=== PATIENT | female | born 1950 | race Hispanic/Latino ===

== ENCOUNTER 2016-07-28 09:10 | Day surgery (SDC) | payer MEDICARE, BC ==
[2016-07-28] MEDS ORDERED: Lactated Ringer's 500 ML IV ONE (09:44)
[2016-07-28] MEDS ORDERED: Propofol 10 mg/ml Inj (20 ML) ONE (10:43)
[2016-07-28 11:21] VITALS: TEMP 97.2
[2016-07-28 11:37] VITALS: BP 143/76; PULSE 75; RESP 15; O2SAT 100
== END 2016-07-28 11:50 | disposition home or self-care (01) ==
LOC: H.ENDO 09:10
PROVIDERS: ATTEND Internal Medicine Gastroenterology
DX: D12.5 Benign neoplasm of sigmoid colon (principal); D12.3 Benign neoplasm of transverse colon; D12.2 Benign neoplasm of ascending colon; K62.1 Rectal polyp; K57.30 Diverticulosis of large intestine without perforation or abscess without bleeding; K64.4 Residual hemorrhoidal skin tags; K64.8 Other hemorrhoids
CPT/HCPCS: 45380; 45384; 88305; J2001; J2704; J7120

== ENCOUNTER 2017-02-09 08:34 | Day surgery (SDC) | payer MEDICARE, BC ==
[2017-02-09] MEDS ORDERED: Lactated Ringer's 500 ML IV ONE (09:08)
[2017-02-09] MEDS ORDERED: Propofol 10 mg/ml Inj (20 ML) ONE (10:54)
[2017-02-09 11:44] VITALS: O2SAT 100
[2017-02-09 11:56] VITALS: BP 127/74; PULSE 69; RESP 14; TEMP 97.2
== END 2017-02-09 12:04 | disposition home or self-care (01) ==
LOC: H.ENDO 08:34
PROVIDERS: ATTEND Internal Medicine Gastroenterology
DX: Z12.11 Encounter for screening for malignant neoplasm of colon (principal); E78.5 Hyperlipidemia, unspecified; I10 Essential (primary) hypertension; D64.9 Anemia, unspecified; K31.7 Polyp of stomach and duodenum; E07.9 Disorder of thyroid, unspecified; K64.4 Residual hemorrhoidal skin tags; K29.70 Gastritis, unspecified, without bleeding; Z86.010 Personal history of colon polyps
CPT/HCPCS: 45378; J2704; J7120

== ENCOUNTER 2017-04-09 18:23 | Inpatient (IN) | payer MEDICARE, BC ==
[2017-04-09] MEDS ORDERED: Sodium Chloride 0.9% 1,000 ML IV STA (19:40)
[2017-04-09 20:07] LABS: BASO % 0.6 % (0.0-2.0); EOS # 0.2 K/uL (0.0-0.7); EOS % 2.3 % (0.0-4.0); HEMATOCRIT 35.2 % (34.0-47.0); LYMPH # 2.1 K/uL (1.0-4.3); LYMPH % 28.1 % (20.0-40.0); MEAN CELL VOLUME 78.1 fl (81.0-99.0); MEAN CORPUSCULAR HEMOGLOBIN 25.9 pg (27.0-31.0); MEAN CORPUSCULAR HGB CONC 33.2 g/dL (33.0-37.0); MEAN PLATELET VOLUME 6.7 fl (7.2-11.7); MONO # 0.6 K/uL (0.0-0.8); MONO % 7.7 % (0.0-10.0); NEUT # 4.7 K/uL (1.8-7.0); NEUT % 61.3 % (50.0-75.0); NRBC % 0.1 % (0.0-0.0); RED CELL DISTRIBUTION WIDTH 14.7 % (11.5-14.5); WHITE BLOOD COUNT 7.6 K/uL (4.8-10.8)
--- NOTE | 2017-04-09 20:10 | ED PDOC ---
HPI: Headache Time Seen by Provider: 04/09/17 19:11 Chief Complaint (Nursing): Headache Chief Complaint (Provider): Headache, neck pain adn left arm pain History Per: Patient History/Exam Limitations: no limitations Onset/Duration Of Symptoms: Days (x 1 week) Current Symptoms Are (Timing): Still Present Additional Complaint(s): 66 year old female with a past medical history of hypertension who presents to the ED with headache, neck pain and left arm pain, onset 1 week ago. Patient reports headache and neck pain are both sharper and stronger in the left side of the head for last 2 days. She has taken Advil with minimal relief. Patient reports she had headaches everyday, but this is stronger and sharper than usual. Pain worsens when she moves her head and radiates to her left arm. Reports intermittent chest pain. Denies fever and photophobia. PMD: Dr. Zain Lopez MD Past Medical History Reviewed: Historical Data, Nursing Documentation, Vital Signs Vital Signs: Last Vital Signs Temp 98 F 04/09/17 18:35 Pulse 81 04/09/17 18:35 Resp 18 04/09/17 18:35 BP 192/83 H 04/09/17 18:35 Pulse Ox 98 04/09/17 18:35 - Medical History PMH: HTN, Hypercholesterolemia, Hypothyroidism - Family History Family History: States: Unknown Family Hx - Home Medications Home Medications: Ambulatory Orders Medication Instructions Recorded Atenolol [Atenolol] 100 mg PO DAILY 04/09/17 Atorvastatin [Lipitor] 20 mg PO DAILY 04/09/17 Glipizide [Glipizide Xl] 5 mg PO DAILY 04/09/17 Levothyroxine [Synthroid] 0.137 mcg PO DAILY 04/09/17 MetFORMIN [glucoPHAGE] 1,000 mg PO BID 04/09/17 Omeprazole [Omeprazole] 20 mg PO DAILY 04/09/17 Ramipril [Altace] 10 mg PO DAILY 04/09/17 amLODIPine [Norvasc] 10 mg PO DAILY 04/09/17 hydroCHLOROthiazide [Hydrodiuril] 25 mg PO DAILY 04/09/17 - Allergies Allergies/Adverse Reactions: Allergies Allergy/AdvReac Type Severity Reaction Status Date / Time No Known Allergies Allergy Verified 02/09/17 09:05 Review of Systems ROS Statement: Except As Marked, All Systems Reviewed And Found Negative Constitutional: Negative for: Fever Cardiovascular: Positive for: Chest Pain Musculoskeletal: Positive for: Neck Pain (left side) Neurological: Positive for: Headache. Negative for: Other (photophobia) Physical Exam - Reviewed Nursing Documentation Reviewed: Yes Vital Signs Reviewed: Yes - Physical Exam Appears: Positive for: Well, Non-toxic, No Acute Distress Head Exam: Positive for: ATRAUMATIC, NORMAL INSPECTION, NORMOCEPHALIC Skin: Positive for: Normal Color, Warm, Dry Eye Exam: Positive for: EOMI, Normal appearance, PERRL ENT: Positive for: Pharyngeal Erythema Neck: Positive for: Pain On Movement Of Neck (tenderness of left paraspinal region) Cardiovascular/Chest: Positive for: Regular Rate, Rhythm. Negative for: Murmur Respiratory: Positive for: Normal Breath Sounds. Negative for: Respiratory Distress Gastrointestinal/Abdominal: Positive for: Normal Exam, Soft. Negative for: Tenderness Back: Positive for: Normal Inspection. Negative for: L CVA Tenderness, R CVA Tenderness, Vertebral Tenderness Extremity: Positive for: Tenderness (left trapezius muscle) Neurologic/Psych: Positive for: Alert, Oriented. Negative for: Motor/Sensory Deficits - Laboratory Results Result Diagrams: 04/09/17 19:59 04/09/17 19:59 - ECG O2 Sat by Pulse Oximetry: 98 (RA) Pulse Ox Interpretation: Normal Medical Decision Making Medical Decision Making: Time: 19:33 Impression: headache, arm pain and chest pain Differential diagnoses: primary headache, secondary headache, radiculopathy, ACS, HTN urgency --CT Head without contrast --EKG --BMP --Troponin I --CBC with differentials --erythrocyte sedimentation rate --PTT --Prothrombin time --Morphine 2 mg IVP --Sodium chloride 1,000 mls/ hr Iv --Norvasc 10 mg PO EKG --normal sinus rhythm, rate is 78. No ST changes. There is a left branch bundle block. CT head without contrast FINDINGS: Brain: Minimal atrophy. No intracranial hemorrhage. No mass. No definite edema. Ventricles: No hydrocephalus. Bones/joints: No acute fracture. Soft tissues: Unremarkable. Vasculature: Atherosclerotic disease of intracranial arteries. Sinuses: No acute sinusitis. Mastoid air cells: No mastoid effusion. Orbits: Unremarkable as visualized. IMPRESSION: 1. No acute intracranial abnormality. 2. Incidental/non-acute findings are described above. 23:[address] reviewed and findings noted as follows: FINDINGS: Limitations: Motion artifact - mild. Pulmonary arteries: No pulmonary embolism. Aorta: Moderate atherosclerotic disease. No dissection. No aneurysm. Lungs: Mosaic pattern of lung parenchyma. Mild atelectasis/scarring. 0.3 cm RIGHT upper lobe nodule, stable. Pleural space: No significant effusion. No pneumothorax. Heart: Mild cardiomegaly. No significant pericardial effusion. Mild coronary artery calcifications. Thyroid: Stable appearance of thyroid gland. Bones/joints: Degenerative changes of spine. Mild deformity superior endplate T11 vertebral body, chronic. No acute fracture. Soft tissues: Unremarkable. Lymph nodes: No pathologically enlarged lymph nodes. IMPRESSION: 1. No aortic dissection. 2. Mosaic pattern of lung parenchyma, nonspecific. DDX: Air-trapping, interstitial edema, interstitial pneumonia, interstitial lung disease. Clinical correlation is needed. 3. Incidental/non-acute findings are described above. Scribe Attestation: Documented by Irasema Oneill and Yanira Mcgregor acting as scribes for Divine Burton MD Provider Scribe Attestation: All medical record entries made by the Scribe were at my direction and personally dictated by me. I have reviewed the chart and agree that the record accurately reflects my personal performance of the history, physical exam, medical decision making, and the department course for this patient. I have also personally directed, reviewed, and agree with the discharge instructions and disposition Disposition - Disposition Forms: [employer] ([place])
[2017-04-09 20:20] LABS: BLOOD UREA NITROGEN 22 mg/dl (7-17); CALCIUM 9.4 mg/dL (8.4-10.2); CARBON DIOXIDE 28 mmol/L (22-30); CHLORIDE 103 mmol/L (98-107); GFR AFRICAN-AMERICAN > 60; GLUCOSE,RANDOM 130 mg/dL (65-105); POTASSIUM 3.6 MMOL/L (3.6-5.0); SODIUM 141 mmol/l (132-148)
[2017-04-09 20:57] LABS: PARTIAL THROMBOPLASTIN TIME 32.9 Seconds (25.6-37.1)
--- NOTE | 2017-04-09 22:08 | CT ---
EXAM: CT Head Without Intravenous Contrast CLINICAL HISTORY: 66 years old, female; Pain; Headache; Other: Left sided TECHNIQUE: Axial computed tomography images of the head/brain without intravenous contrast. All CT scans at this facility use one or more dose reduction techniques, viz.: automated exposure control; ma/kV adjustment per patient size (including targeted exams where dose is matched to indication; i.e. head); or iterative reconstruction technique. Coronal and sagittal reformatted images were created and reviewed. COMPARISON: CT - HEAD^HEAD ROUTINE (ADULT) 2011-06-05 15:37 FINDINGS: Brain: Minimal atrophy. No intracranial hemorrhage. No mass. No definite edema. Ventricles: No hydrocephalus. Bones/joints: No acute fracture. Soft tissues: Unremarkable. Vasculature: Atherosclerotic disease of intracranial arteries. Sinuses: No acute sinusitis. Mastoid air cells: No mastoid effusion. Orbits: Unremarkable as visualized. IMPRESSION: 1. No acute intracranial abnormality. 2. Incidental/non-acute findings are described above.
[2017-04-09] MEDS ORDERED: Sodium Chloride 0.9% 50 ML IV ONE (22:59)
[2017-04-09] MEDS ORDERED: Iodixanol 320 MG/ML 100 ML BOTTLE IV ONE (22:59)
--- NOTE | 2017-04-09 23:57 | CT ---
EXAM: CT Angiography Chest Without and With Intravenous Contrast CLINICAL HISTORY: 66 years old, female; Pain; Abdominal pain; Acute; Chest pain; Additional info: Chest pain neck pain headache arm pain hypertensiv TECHNIQUE: Axial computed tomographic angiography images of the chest without and with intravenous contrast using pulmonary embolism protocol. All CT scans at this facility use one or more dose reduction techniques, viz.: automated exposure control; ma/kV adjustment per patient size (including targeted exams where dose is matched to indication; i.e. head); or iterative reconstruction technique. MIP reconstructed images were created and reviewed. Coronal and sagittal reformatted images were created and reviewed. CONTRAST: 95 mL of [id number] administered intravenously. COMPARISON: CT - VASCULAR^PE LARGE (ADULT) 2011-06-05 18:17 FINDINGS: Limitations: Motion artifact - mild. Pulmonary arteries: No pulmonary embolism. Aorta: Moderate atherosclerotic disease. No dissection. No aneurysm. Lungs: Mosaic pattern of lung parenchyma. Mild atelectasis/scarring. 0.3 cm RIGHT upper lobe nodule, stable. Pleural space: No significant effusion. No pneumothorax. Heart: Mild cardiomegaly. No significant pericardial effusion. Mild coronary artery calcifications. Thyroid: Stable appearance of thyroid gland. Bones/joints: Degenerative changes of spine. Mild deformity superior endplate T11 vertebral body, chronic. No acute fracture. Soft tissues: Unremarkable. Lymph nodes: No pathologically enlarged lymph nodes. IMPRESSION: 1. No aortic dissection. 2. Mosaic pattern of lung parenchyma, nonspecific. DDX: Air-trapping, interstitial edema, interstitial pneumonia, interstitial lung disease. Clinical correlation is needed. 3. Incidental/non-acute findings are described above. EXAM: CT Angiography Abdomen and Pelvis With Intravenous Contrast CLINICAL HISTORY: 66 years old, female; Pain; Abdominal pain; Acute; Chest pain; Additional info: Chest pain neck pain headache arm pain hypertensiv TECHNIQUE: Axial computed tomographic angiography images of the abdomen and pelvis with intravenous contrast. All CT scans at this facility use one or more dose reduction techniques, viz.: automated exposure control; ma/kV adjustment per patient size (including targeted exams where dose is matched to indication; i.e. head); or iterative reconstruction technique. MIP reconstructed images were created and reviewed. Coronal and sagittal reformatted images were created and reviewed. CONTRAST: 95 mL of [id number] administered intravenously. COMPARISON: No relevant prior studies available. FINDINGS: VASCULATURE: Aorta: Moderate atherosclerotic disease. No dissection. No aneurysm. Celiac trunk and mesenteric arteries: Mild atherosclerotic disease. No occlusion or significant stenosis. Renal arteries: Mild LEFT sclerotic disease. Mild ostial stenosis. No occlusion. Iliac arteries: Moderate atherosclerotic disease. No occlusion or significant stenosis. ABDOMEN: Liver: Fatty infiltration. Few calcifications. Gallbladder and bile ducts: Gallstones. No ductal dilation. Pancreas: Unremarkable. No ductal dilation. No mass. Spleen: Mild splenomegaly. Adrenals: Unremarkable. No mass. Kidneys and ureters: Few peripelvic cysts. Probable RIGHT renal cyst. Few too small to characterize lesions within kidneys. No hydronephrosis. Stomach and bowel: Unremarkable. No obstruction. No mucosal thickening. Appendix: Normal caliber. No inflammation. PELVIS: Bladder: Unremarkable. No mass. Reproductive: Unremarkable as visualized. ABDOMEN and PELVIS: Intraperitoneal space: Unremarkable. No significant fluid collection. No free air. Bones/joints: Degenerative changes of spine. Mild deformity superior endplate L2 vertebral body, chronic. No acute fracture. No dislocation. Soft tissues: Unremarkable. Lymph nodes: No pathologically enlarged lymph nodes. IMPRESSION: 1. No aortic dissection. 2. Incidental/non-acute findings are described above.
--- NOTE | 2017-04-10 05:01 | CP.PCM.HP ---
<Samuel Sears - Last Filed: 04/10/17 06:04> History of Present Illness - History of Present Illness History of Present Illness: 66 year old female with PMH of HTN, NIDDM2, Obesity, HLD, hypothyroidism, herniated disks presented to ED with history of left sided headache and neck pain that has been worsening for past two days. She has never had headache like this before. She has associated left sided neck pain, exacerbated by movement, with radiation to left arm. Pain is severe, sharp in nature, without associated numbness or tingling. She reports difficulty turning her head to the left, no difficulty with turning right. No associated dizziness, visual changes, recent illness, fevers, nausea or vomiting, no chest or back pain. No weakness of upper or lower extremities. Headache has improved since arrival to ED, is now tolerable but still present. Patients BP was initially elevated upon presentation to ED, states she did take her BP medications today. Her daughters were present, do not know of any history of abnormal EKG or MA. Patient not aware of hx of abnormal ECG. Her pulley maintainer is Dr. Jolanta Rueda, last visit was in May 2016. Unknown if patient had echo recently. PMD: Dr. Garcia Spd Manager: Dr. Jolanta Rueda PMH: HTN, NIDDM2, Obesity, hypothyroidism, HLD Medications: as per chart Allergies: NKDA Social: denies current tobacco, etoh use Family HX: Father :HTN, stroke As per patient code status: DNR/DNI. Daughter present for discussion about code status. Patient does not want intubation or CPR, her mother despite this treatment, she would like to avoid it. Present on Admission - Present on Admission Any Indicators Present on Admission: No Past Patient History - Infectious Disease Hx of Infectious Diseases: None - Past Medical History & Family History Past Medical History?: Yes - Past Social History Smoking Status: Former Smoker - CARDIAC Hx Hypercholesterolemia: Yes Hx Hypertension: Yes - ENDOCRINE/METABOLIC Hx Hypothyroidism: Yes - MUSCULOSKELETAL/RHEUMATOLOGICAL Hx Falls: No - PSYCHIATRIC Hx Substance Use: No - SURGICAL HISTORY Hx Surgeries: No - ANESTHESIA Hx Anesthesia: No Meds Allergies/Adverse Reactions: Allergies Allergy/AdvReac Type Severity Reaction Status Date / Time No Known Allergies Allergy Verified 02/09/17 09:05 Physical Exam - Constitutional Additional comments: no distress, appears uncomfortable, obese female - Head Exam Head Exam: ATRAUMATIC, NORMAL INSPECTION, NORMOCEPHALIC - Eye Exam Eye Exam: EOMI, Normal appearance, PERRL - ENT Exam ENT Exam: Mucous Membranes Moist, Normal Exam - Neck Exam Neck exam: Negative for: Thyromegaly Additional comments: limited range of motion. able to turn head to right without limitations, limited ROM upon turning head left due to pain. posterior neck mildly tender to palpation. - Expanded Neck Exam Expanded Expanded Neck Exam: absent: Thyroid Mass, Tracheal Deviation - Respiratory Exam Respiratory Exam: Clear to Auscultation Bilateral, NORMAL BREATHING PATTERN. absent: Decreased Breath Sounds, Rales, Rhonchi, Wheezes, Respiratory Distress - Cardiovascular Exam Cardiovascular Exam: REGULAR RHYTHM, +S1, +S2. absent: Diastolic murmur, Systolic Murmur Additional comments: distant heart sounds - GI/Abdominal Exam GI & Abdominal Exam: Normal Bowel Sounds, Soft. absent: Distended, Guarding, Tenderness - Extremities Exam Extremities exam: Positive for: normal inspection. Negative for: pedal edema - Neurological Exam Neurological exam: Alert, CN II-XII Intact, Oriented x3 - Expanded Neurological Exam Expanded Speech: Fluid Speech Cranial nerves: EOM's Intact: Normal Neuro motor strength exam: Left Upper Extremity: 5, Right Upper Extremity: 5, Left Lower Extremity: 5, Right Lower Extremity: 5 Coma Scale Eye Opening: SPONTANEOUS Coma Scale Motor Response: OBEYS COMMANDS Coma Scale Verbal: Oriented Coma Scale Total: 15 - Psychiatric Exam Psychiatric exam: Normal Affect, Normal Mood - Skin Skin Exam: Dry, Intact, Normal Color, Warm Results - Vital Signs Recent Vital Signs: Last Vital Signs Temp 98.0 F 04/10/17 01:55 Pulse 74 04/10/17 03:49 Resp 16 04/10/17 03:49 BP 141/68 04/10/17 01:55 Pulse Ox 95 04/10/17 01:55 - Labs Result Diagrams: 04/09/17 19:59 04/09/17 19:59 Labs: Laboratory Results - last 24 hr 04/09/17 04/09/17 04/09/17 19:59 19:59 19:59 WBC 7.6 RBC 4.50 Hgb 11.7 L Hct 35.2 MCV 78.1 L D MCH 25.9 L MCHC 33.2 RDW 14.7 H Plt Count 213 MPV 6.7 L Neut % (Auto) 61.3 Lymph % (Auto) 28.1 [place] % (Auto) 7.7 Eos % (Auto) 2.3 Baso % (Auto) 0.6 Neut # 4.7 Lymph # 2.1 [place] # 0.6 Eos # 0.2 Baso # 0.0 ESR 43 H PT 10.9 INR 1.0 APTT 32.9 Sodium 141 Potassium 3.6 Chloride 103 Carbon Dioxide 28 Anion Gap 14 BUN 22 H Creatinine 0.7 Est GFR ( Amer) > 60 Est GFR (Non-Af Amer) > 60 Random Glucose 130 H Calcium 9.4 Troponin I 0.0150 - EKG Data EKG Interpreted by: Myself - Imaging and Cardiology CT scan - abdomen Status: Image reviewed by me, Report reviewed by me Additional comment: CLINICAL HISTORY: 66 years old, female; Pain; Abdominal pain; Acute; Chest pain; Additional info: Chest pain neck pain headache arm pain hypertensiv TECHNIQUE: Axial computed tomographic angiography images of the chest without and with intravenous contrast using pulmonary embolism protocol. All CT scans at this facility use one or more dose reduction techniques, viz.: automated exposure control; ma/kV adjustment per patient size (including targeted exams where dose is matched to indication; i.e. head); or iterative reconstruction technique. MIP reconstructed images were created and reviewed. Coronal and sagittal reformatted images were created and reviewed. CONTRAST: 95 mL of [id number] administered intravenously. COMPARISON: CT - VASCULAR PE LARGE (ADULT) 2011-06-05 18:17 FINDINGS: Limitations: Motion artifact - mild. Pulmonary arteries: No pulmonary embolism. Aorta: Moderate atherosclerotic disease. No dissection. No aneurysm. Lungs: Mosaic pattern of lung parenchyma. Mild atelectasis/scarring. 0.3 cm RIGHT upper lobe nodule, stable. Pleural space: No significant effusion. No pneumothorax. Heart: Mild cardiomegaly. No significant pericardial effusion. Mild coronary artery calcifications. Thyroid: Stable appearance of thyroid gland. Bones/joints: Degenerative changes of spine. Mild deformity superior endplate T11 vertebral body, chronic. No acute fracture. Soft tissues: Unremarkable. Lymph nodes: No pathologically enlarged lymph nodes. IMPRESSION: 1. No aortic dissection. 2. Mosaic pattern of lung parenchyma, nonspecific. DDX: Air-trapping, interstitial edema, interstitial pneumonia, interstitial lung disease. Clinical correlation is needed. 3. Incidental/non-acute findings are described above. EXAM: CT Angiography Abdomen and Pelvis With Intravenous Contrast CLINICAL HISTORY: 66 years old, female; Pain; Abdominal pain; Acute; Chest pain; Additional info: Chest pain neck pain headache arm pain hypertensiv TECHNIQUE: Axial computed tomographic angiography images of the abdomen and pelvis with intravenous contrast. All CT scans at this facility use one or more dose reduction techniques, viz.: automated exposure control; ma/kV adjustment per patient size (including targeted exams where dose is matched to indication; i.e. head); or iterative reconstruction technique. MIP reconstructed images were created and reviewed. Coronal and sagittal reformatted images were created and reviewed. CONTRAST: 95 mL of [id number] administered intravenously. COMPARISON: No relevant prior studies available. FINDINGS: VASCULATURE: Aorta: Moderate atherosclerotic disease. No dissection. No aneurysm. Celiac trunk and mesenteric arteries: Mild atherosclerotic disease. No occlusion or significant stenosis. Renal arteries: Mild LEFT sclerotic disease. Mild ostial stenosis. No occlusion. Iliac arteries: Moderate atherosclerotic disease. No occlusion or significant stenosis. ABDOMEN: Liver: Fatty infiltration. Few calcifications. Gallbladder and bile ducts: Gallstones. No ductal dilation. Pancreas: Unremarkable. No ductal dilation. No mass. Spleen: Mild splenomegaly. Adrenals: Unremarkable. No mass. Kidneys and ureters: Few peripelvic cysts. Probable RIGHT renal cyst. Few too small to characterize lesions within kidneys. No hydronephrosis. Stomach and bowel: Unremarkable. No obstruction. No mucosal thickening. Appendix: Normal caliber. No inflammation. PELVIS: Bladder: Unremarkable. No mass. Reproductive: Unremarkable as visualized. ABDOMEN and PELVIS: Intraperitoneal space: Unremarkable. No significant fluid collection. No free air. Bones/joints: Degenerative changes of spine. Mild deformity superior endplate L2 vertebral body, chronic. No acute fracture. No dislocation. Soft tissues: Unremarkable. Lymph nodes: No pathologically enlarged lymph nodes. IMPRESSION: 1. No aortic dissection. 2. Incidental/non-acute findings are described above. Dictated By: Bird Umaña MD Dictated Date/Time: 04/09/17 5069 Signed By: Bird Umaña MD Date Signed: [id number] Transcribed By: BATSHEVA Transcribe Date/Time : 04/09/172355 [id number] CT scan - head Status: Image reviewed by me, Report reviewed by me Additional comment: CT Scan HEAD W/O CONTRAST Exam Date: 04/09/17 This imaging exam was performed at [facility] EXAM: CT Head Without Intravenous Contrast CLINICAL HISTORY: 66 years old, female; Pain; Headache; Other: Left sided TECHNIQUE: Axial computed tomography images of the head/brain without intravenous contrast. All CT scans at this facility use one or more dose reduction techniques, viz.: automated exposure control; ma/kV adjustment per patient size (including targeted exams where dose is matched to indication; i.e. head); or iterative reconstruction technique. Coronal and sagittal reformatted images were created and reviewed. COMPARISON: CT - HEAD HEAD ROUTINE (ADULT) 2011-06-05 15:37 FINDINGS: Brain: Minimal atrophy. No intracranial hemorrhage. No mass. No definite edema. Ventricles: No hydrocephalus. Bones/joints: No acute fracture. Soft tissues: Unremarkable. Vasculature: Atherosclerotic disease of intracranial arteries. Sinuses: No acute sinusitis. Mastoid air cells: No mastoid effusion. Orbits: Unremarkable as visualized. IMPRESSION: 1. No acute intracranial abnormality. 2. Incidental/non-acute findings are described above. Dictated By: Bird Umaña MD Dictated Date/Time: 04/09/172206 Signed By: Bird Umaña MD Date Signed: [id number] Transcribed By: BATSHEVA Transcribe Date/Time : 04/09/172206 Assessment & Plan (1) Headache Assessment and Plan: 66 year old female with PMH of HTN, HLD, NIDDM2, Obesity, Hypothyroidism admitted for new onset severe headache with associated neck and arm pain. No focal deficits. Does not appear to be infectious etiology, however not ruled out. CT head was negative. CTAngio was negative for dissection. ESR:43 If symptoms persists in AM, can consider a MRI of brain and neurology consult. Lipid panel, tsh, hga1c ordered given patients increased risk of stroke due to comorbidities. Cardiology consult -EKG abnormal, no comparison. No echo on file. rule out acs. Tylenol for h/a, if mod to severe can give morphine. Status: Acute (2) Neck pain on left side Assessment and Plan: etiolgy unknown, possibly related to cervical neck disk herniation as reported by patient, lidoderm patch for now Status: Acute (3) HTN (hypertension) Assessment and Plan: uncontrolled on admission, BP now normalized, home medications resumed. Status: Chronic (4) HLD (hyperlipidemia) Assessment and Plan: lipid panel in AM Status: Chronic (5) Hypothyroidism Assessment and Plan: tsh in AM, on synthroid Status: Chronic (6) Obesity Status: Chronic (7) Non-insulin dependent type 2 diabetes mellitus Assessment and Plan: home medications resumed hga1c ordered Status: Chronic <Jose Thomas - Last Filed: 04/12/17 06:55> Results - Vital Signs Recent Vital Signs: Last Vital Signs Temp 97.9 F 04/11/17 08:00 Pulse 69 04/11/17 09:08 Resp 18 04/11/17 08:00 BP 139/75 04/11/17 09:08 Pulse Ox 94 L 04/11/17 08:00 - Labs Result Diagrams: 04/09/17 19:59 04/09/17 19:59 Attending/Attestation - Attestation I have fully participated in the care of the patient.: Yes I have reviewed all pertinent clinical information: Yes
[2017-04-10 07:57] LABS: TROPONIN I 0.012 ng/mL (0.00-0.120)
[2017-04-10 08:14] LABS: THYROID STIMULATING HORMONE 4.48 mIU/ML (0.46-4.68)
--- NOTE | 2017-04-10 08:48 | CP.PCM.CON ---
History of Present Illness - History of Present Illness History of Present Illness: This 66-year-old female is known to me from 1992 when I saw her first for hypertension. She has been chronically overweight and the left glucose intolerance approximately 20 years back and eventually had abnormal renal function requiring regular renal assessment. She was also found to be hypothyroid and has been taking thyroid replacement. She has never been a smoker and has never suffered a myocardial infarction and a nuclear stress test with IV Persantine approximately 10 years back was negative for any evidence of myocardial ischemia. The patient has never manifested overt congestive cardiac failure. The patient now came into the hospital having experienced left-sided neck pain which is further aggravated by turning her face left side and also involves radiation of this discomfort to the left side of her head and to left shoulder and arm. She denies any injury to the neck. She denies any trauma or fall. The pain is not accompanied by any nausea or vomiting. She denies any palpitations or dyspnea. There is a history of right sided neck pain which radiated down her right arm which was ascribed to a cervical radiculopathy one year back. Physical examination shows an overweight anxious female lying flat in bed with a pulse rate of 64 bpm and regular and a blood pressure of 144/84 mmHg. Her jugular venous pressure was not elevated there was minimal pitting edema over both lower extremities. Pedal pulses were well felt. There were no carotid bruits. The apex was not palpable. The first and second heart sounds are normal. Ejection systolic murmur in the aortic area was present the second heart sound was well preserved. Abdomen was soft liver and spleen are not palpable. Her electro-cardiogram shows sinus rhythm with a left bundle branch block which has been detected for the first time. Comparison to her electrocardiograms off 2014 and before show that she always had sinus rhythm with a normal EKG pattern. The lab data was noted. There was mild azotemia. Impression: Newly detected left bundle branch block in a patient with long history of hypertension, diabetes and diabetic nephropathy with chronic exogenous obesity and hypothyroidism. The patient has no overt evidence of congestive cardiac failure. The patient will undergo an echocardiogram to assess left ventricular systolic function In the meantime, the patient is proceeding with her workup to evaluate her left- sided neck pain. Past Patient History - Infectious Disease Hx of Infectious Diseases: None - Past Medical History & Family History Past Medical History?: Yes - Past Social History Smoking Status: Former Smoker - CARDIAC Hx Hypercholesterolemia: Yes Hx Hypertension: Yes - ENDOCRINE/METABOLIC Hx Hypothyroidism: Yes - MUSCULOSKELETAL/RHEUMATOLOGICAL Hx Falls: No - PSYCHIATRIC Hx Substance Use: No - SURGICAL HISTORY Hx Surgeries: No - ANESTHESIA Hx Anesthesia: No Meds Allergies/Adverse Reactions: Allergies Allergy/AdvReac Type Severity Reaction Status Date / Time No Known Allergies Allergy Verified 02/09/17 09:05 - Medications Medications: Current Medications Acetaminophen (Tylenol 325mg Tab) 650 mg PO Q6 PRN PRN Reason: Headache Amlodipine Besylate (Norvasc) 10 mg PO DAILY [facility] Atenolol (Atenolol) 100 mg PO DAILY [facility] Atorvastatin Calcium (Lipitor) 20 mg PO DAILY [facility] Glipizide (Glucotrol Xl) 5 mg PO DAILY [facility] Hydrochlorothiazide (Hydrodiuril) 25 mg PO DAILY [facility] Levothyroxine Sodium (Levothroid) 137 mcg PO DAILY@0630 [facility] Metformin HCl (Glucophage) 1,000 mg PO BID [facility] Morphine Sulfate (Morphine) 2 mg IVP Q4 PRN PRN Reason: Pain, moderate (4-7) Pantoprazole Sodium (Protonix Ec Tab) 40 mg PO DAILY [facility] Ramipril (Altace) 10 mg PO DAILY [facility] Results - Vital Signs Recent Vital Signs: Last Vital Signs Temp 98.4 F 04/10/17 08:00 Pulse 67 04/10/17 08:00 Resp 18 04/10/17 08:00 BP 133/68 04/10/17 08:00 Pulse Ox 97 04/10/17 08:00 - Labs Result Diagrams: 04/09/17 19:59 04/09/17 19:59 Labs: Laboratory Results - last 24 hr 04/09/17 04/09/17 04/09/17 19:59 19:59 19:59 WBC 7.6 RBC 4.50 Hgb 11.7 L Hct 35.2 MCV 78.1 L D MCH 25.9 L MCHC 33.2 RDW 14.7 H Plt Count 213 MPV 6.7 L Neut % (Auto) 61.3 Lymph % (Auto) 28.1 [place] % (Auto) 7.7 Eos % (Auto) 2.3 Baso % (Auto) 0.6 Neut # 4.7 Lymph # 2.1 [place] # 0.6 Eos # 0.2 Baso # 0.0 ESR 43 H PT 10.9 INR 1.0 APTT 32.9 Sodium 141 Potassium 3.6 Chloride 103 Carbon Dioxide 28 Anion Gap 14 BUN 22 H Creatinine 0.7 Est GFR ( Amer) > 60 Est GFR (Non-Af Amer) > 60 Random Glucose 130 H Calcium 9.4 Troponin I 0.0150 NT-Pro-B Natriuret Pep Triglycerides Cholesterol LDL Cholesterol Direct HDL Cholesterol TSH 3rd Generation 04/10/17 04:20 WBC RBC Hgb Hct MCV MCH MCHC RDW Plt Count MPV Neut % (Auto) Lymph % (Auto) [place] % (Auto) Eos % (Auto) Baso % (Auto) Neut # Lymph # [place] # Eos # Baso # ESR PT INR APTT Sodium Potassium Chloride Carbon Dioxide Anion Gap BUN Creatinine Est GFR ( Amer) Est GFR (Non-Af Amer) Random Glucose Calcium Troponin I 0.0120 NT-Pro-B Natriuret Pep 183 Triglycerides 111 Cholesterol 148 LDL Cholesterol Direct 97 HDL Cholesterol 36 TSH 3rd Generation 4.48
[2017-04-10] MEDS ORDERED: GlipiZIDE 5 mg SR Tab PO SCH (09:00)
[2017-04-10] MEDS: Pantoprazole 40 mg EC Tab PO SCH (09:37)
[2017-04-10] MEDS: ATENOLOL 100 MG TAB PO SCH (09:37)
--- NOTE | 2017-04-10 10:53 | CARD ---
APPROVED REPORT EKG Measurement Heart [id number] 206P50 [id number] <Conclusion> Normal sinus rhythm Left bundle branch block Abnormal ECG
[2017-04-10] MEDS: GlipiZIDE 5 mg SR Tab PO SCH (13:27)
[2017-04-10 18:50] VITALS: RESP 18
--- NOTE | 2017-04-10 19:36 | CARD ---
APPROVED REPORT EXAM: Two-dimensional and M-mode echocardiogram with Doppler and color Doppler. Other Information Quality : AverageRhythm : LBBB INDICATION Abnormal EKG/Arrhythmia 2D DIMENSIONS IVSd0.99 (0.7-1.1cm)LVDd4.34 (3.9-5.9cm) LVOT Diameter2.12 (1.8-2.4cm)PWd1.56 (0.7-1.1cm) IVSs1.48 (0.8-1.2cm)LVDs4.10 (2.5-4.0cm) FS (%) 5.7 %PWs1.38 (0.8-1.2cm) M-Mode DIMENSIONS Left Atrium (MM)4.26 (2.5-4.0cm)IVSd1.18 (0.7-1.1cm) Aortic Root2.82 (2.2-3.7cm)LVDd5.00 (4.0-5.6cm) Aortic Cusp Exc.1.82 (1.5-2.0cm)PWd1.03 (0.7-1.1cm) IVSs1.18 cmFS (%) 24 % LVDs3.82 (2.0-3.8cm)PWs1.50 cm Mitral Valve MV E Gwbahuam53.5cm/sMV DECEL [id number] A Djkhrtxs006.5cm/s MV GSB60wgN/A ratio0.9MVA (PHT)3.66cm2 TDI E/Lateral E'0.0E/Medial E'0.0 Pulmonary Valve PV Peak Cwswmjzq208.7cm/s Tricuspid Valve TR Peak Qsflrsbm063bp/sRAP [id number] Peak Gr.25mmHg HLSI45gbCq LEFT VENTRICLE The left ventricle is normal size. There is normal left ventricular wall thickness. Left ventricle systolic function is mildly impaired. The Ejection Fraction is - 50%. The septal wall demonstrates mild paradoxical motion. The other segments of the left ventricle have good contraction. Transmitral Doppler flow pattern is Grade I-abnormal relaxation pattern. No left ventricle thrombus noted on this study. There is no ventricular septal defect visualized. There is no left ventricular aneurysm. There is no mass noted in the left ventricle. RIGHT VENTRICLE The right ventricle is normal size. There is normal right ventricular wall thickness. The right ventricular systolic function is normal. ATRIA The left atrium is mildly dilated. There is no thrombus suspected in the left atrium. The right atrium size is normal. The interatrial septum is intact with no evidence for an atrial septal defect. AORTIC VALVE The aortic valve is normal in structure. No aortic regurgitation is present. There is no aortic valvular stenosis. MITRAL VALVE The mitral valve is normal in structure. There is no evidence of mitral valve prolapse. There is no mitral valve stenosis. Mitral regurgitation is moderate. TRICUSPID VALVE The tricuspid valve is normal in structure. There is mild to moderate tricuspid regurgitation. Right ventricular systolic pressure is estimated at 34 mmHg. There is no tricuspid valve prolapse or vegetation. There is no tricuspid valve stenosis. PULMONIC VALVE The pulmonary valve is normal in structure. There is trace pulmonic valvular regurgitation. GREAT VESSELS The aortic root is normal in size. The IVC is normal in size and collapses >50% with inspiration. PERICARDIAL EFFUSION The pericardium appears normal. There is no pleural effusion. <Conclusion> The study is of fair quality. The left ventricle is normal in size and wall thickness. Left ventricle systolic function is mildly impaired. The Ejection Fraction is - 50%. The left atrium is mildly dilated. The mitral, aortic and tricuspid valves are normal. There is moderate mitral regurgitation and mild to moderate tricuspid regurgitation.
[2017-04-11 08:19] VITALS: BP 139/75; PULSE 69; TEMP 97.9; O2SAT 94
[2017-04-11] MEDS: ATENOLOL 100 MG TAB PO SCH (09:06)
[2017-04-11] MEDS: GlipiZIDE 5 mg SR Tab PO SCH (09:07)
[2017-04-11] MEDS: Pantoprazole 40 mg EC Tab PO SCH (09:08)
--- NOTE | 2017-04-11 09:25 | CP.PCM.DIS ---
Provider - Provider Date of Admission: 04/10/17 14:25 Attending physician: Zain Lopez MD Primary care physician: Dr. Lopez Time Spent in preparation of Discharge (in minutes): 30 Diagnosis - Discharge Diagnosis (1) Headache Status: Acute (2) Neck pain on left side Status: Acute Hospital Course - Lab Results Lab Results: Most Recent Lab Values WBC 7.6 K/uL (4.8-10.8) 04/09/17 19:59 RBC 4.50 Mil/uL (3.80-5.20) 04/09/17 19:59 Hgb 11.7 g/dL (12.0-16.0) L 04/09/17 19:59 Hct 35.2 % (34.0-47.0) 04/09/17 19:59 MCV 78.1 fl (81.0-99.0) L D 04/09/17 19:59 MCH 25.9 pg (27.0-31.0) L 04/09/17 19:59 MCHC 33.2 g/dL (33.0-37.0) 04/09/17 19:59 RDW 14.7 % (11.5-14.5) H 04/09/17 19:59 Plt Count 213 K/uL (130-400) 04/09/17 19:59 MPV 6.7 fl (7.2-11.7) L 04/09/17 19:59 Neut % (Auto) 61.3 % (50.0-75.0) 04/09/17 19:59 Lymph % (Auto) 28.1 % (20.0-40.0) 04/09/17 19:59 [place] % (Auto) 7.7 % (0.0-10.0) 04/09/17 19:59 Eos % (Auto) 2.3 % (0.0-4.0) 04/09/17 19:59 Baso % (Auto) 0.6 % (0.0-2.0) 04/09/17 19:59 Neut # 4.7 K/uL (1.8-7.0) 04/09/17 19:59 Lymph # 2.1 K/uL (1.0-4.3) 04/09/17 19:59 [place] # 0.6 K/uL (0.0-0.8) 04/09/17 19:59 Eos # 0.2 K/uL (0.0-0.7) 04/09/17 19:59 Baso # 0.0 K/uL (0.0-0.2) 04/09/17 19:59 ESR 43 mm/hr (0-30) H 04/09/17 19:59 PT 10.9 Seconds (9.8-13.1) 04/09/17 19:59 INR 1.0 (0.9-1.2) 04/09/17 19:59 APTT 32.9 Seconds (25.6-37.1) 04/09/17 19:59 Sodium 141 mmol/l (132-148) 04/09/17 19:59 Potassium 3.6 MMOL/L (3.6-5.0) 04/09/17 19:59 Chloride 103 mmol/L (98-107) 04/09/17 19:59 Carbon Dioxide 28 mmol/L (22-30) 04/09/17 19:59 Anion Gap 14 (10-20) 04/09/17 19:59 BUN 22 mg/dl (7-17) H 04/09/17 19:59 Creatinine 0.7 mg/dl (0.7-1.2) 04/09/17 19:59 Est GFR ( Amer) > 60 04/09/17 19:59 Est GFR (Non-Af Amer) > 60 04/09/17 19:59 Random Glucose 130 mg/dL (65-105) H 04/09/17 19:59 Calcium 9.4 mg/dL (8.4-10.2) 04/09/17 19:59 Troponin I < 0.0120 ng/mL (0.00-0.120) 04/10/17 11:25 NT-Pro-B Natriuret Pep 183 pg/ml (0-900) 04/10/17 04:20 Triglycerides 111 mg/DL (0-149) 04/10/17 04:20 Cholesterol 148 mg/dL (0-199) 04/10/17 04:20 LDL Cholesterol Direct 97 mg/dL (0-129) 04/10/17 04:20 HDL Cholesterol 36 MG/DL (30-70) 04/10/17 04:20 TSH 3rd Generation 4.48 mIU/ML (0.46-4.68) 04/10/17 04:20 - Hospital Course Hospital Course: 66 YO F w/ PMH of HTN , DM, Obesity and herniated disks and presented to the ED for left sided headache and neck pain. Patient's EKG in the ER showed a new onset of LBBB which was never seen on previous EKG. Denied any chest pain or SOB. Patient was seen by cardio and was recommended to get a Echo done, since she did not have one previously: - Echo showed a EF of 50%, left atrium is mildly dilated. Moderate mitral regurgitation and moderate tricuspid regurgitation is noted. Patients troponins were .015, .012, <.012. Repeat EKG was done which continued to show a left bundle branch block. Case was discussed with Dr. Martin which was covering for Dr. Rueda, and was cleared to go home, and to follow up with Dr. Rueda outpatient. Patient denies any chest pain, SOB, Nausea, vomiting. - Patients neck pain appears to be slightly better. Still is causing some discomfort. Patient has been given medication and has been advised to follow up with Dr. Hanley for pain management outpatient. Discharge Exam - Head Exam Head Exam: ATRAUMATIC, NORMAL INSPECTION, NORMOCEPHALIC - Eye Exam Eye Exam: Normal appearance - Neck Exam Additional comments: Para vertebral tenderness in cervical region , with tenderness along left sternocleidomastoid - Respiratory Exam Respiratory Exam: NORMAL BREATHING PATTERN. absent: Rales, Rhonchi - Cardiovascular Exam Cardiovascular Exam: REGULAR RHYTHM, +S1, +S2 - GI/Abdominal Exam GI & Abdominal Exam: Normal Bowel Sounds - Extremities Exam Extremities exam: calf tenderness - Neurological Exam Neurological exam: Alert, CN II-XII Intact, Normal Gait, Oriented x3 - Skin Skin Exam: Normal Color, Warm Discharge Plan - Discharge Medications Prescriptions: Cyclobenzaprine HCl 10 mg PO HS #14 tablet Famotidine [Heartburn Prevention] 20 mg PO BID #28 tablet Naproxen [Naprosyn] 500 mg PO BID #28 tablet - Follow Up Plan Condition: GOOD Disposition: HOME/ ROUTINE Instructions: Chest Pain (GEN), Chronic Hypertension (DC), Chronic Hypertension (GEN), Cervical Radiculopathy (GEN) Additional Instructions: Follow up with Dr. Lopez in 1 week Follow up with communications supervisor, Dr. Rueda in 1 week Follow up with Dr. Hanley in 1 week Take medications as prescribed ED and medication precautions discussed Referrals: Zain Lopez MD [Family Provider] - Bill Hanley MD [Staff Provider] - Douglas Rueda MD [Staff Provider] -
--- NOTE | 2017-04-11 12:00 | CARD ---
APPROVED REPORT EKG Measurement Heart [id number] [place] 200P18 [id number] <Conclusion> Normal sinus rhythm Left axis deviation Left bundle branch block Abnormal ECG
== END 2017-04-11 10:30 | disposition home or self-care (01) | DRG 552 ==
LOC: H.ER 18:23 → H.ERHOLD 04-10 00:46 → H.TEL 04-10 03:18 → OBSVTOIN 04-10 14:25
PROVIDERS: ADMIT Family Medicine; ATTEND Family Medicine
DX: M54.2 Cervicalgia (principal); E11.21 Type 2 diabetes mellitus with diabetic nephropathy; R51 Headache; E03.9 Hypothyroidism, unspecified; E78.00 Pure hypercholesterolemia, unspecified; I10 Essential (primary) hypertension; E66.9 Obesity, unspecified; Z68.38 Body mass index [BMI] 38.0-38.9, adult; E78.5 Hyperlipidemia, unspecified; Z66 Do not resuscitate; I44.7 Left bundle-branch block, unspecified; I08.1 Rheumatic disorders of both mitral and tricuspid valves; Z87.891 Personal history of nicotine dependence

== ENCOUNTER 2017-11-30 08:06 | Day surgery (SDC) | payer MEDICARE, BC ==
[2017-07-23 08:29] VITALS: BMI 38.0
[2017-11-30] MEDS ORDERED: Lactated Ringer's 500 ML IV ONE (08:31)
[2017-11-30] MEDS ORDERED: Propofol 10 mg/ml Inj (20 ML) ONE (09:26)
[2017-11-30 09:51] VITALS: TEMP 97
[2017-11-30 10:03] VITALS: BP 143/70; PULSE 67; RESP 14; O2SAT 99
== END 2017-11-30 10:55 | disposition home or self-care (01) ==
LOC: H.ENDO 08:06
PROVIDERS: ATTEND Internal Medicine Gastroenterology
DX: K30 Functional dyspepsia (principal); E11.9 Type 2 diabetes mellitus without complications; E78.5 Hyperlipidemia, unspecified; I10 Essential (primary) hypertension; D64.9 Anemia, unspecified; E66.9 Obesity, unspecified; K31.89 Other diseases of stomach and duodenum; K31.7 Polyp of stomach and duodenum; R10.13 Epigastric pain
CPT/HCPCS: 43239; 43251; 82948; 88305; J2001; J2704; J7120

== ENCOUNTER 2017-12-14 07:31 | Day surgery (SDC) | payer MEDICARE, BC ==
[2017-12-14] MEDS ORDERED: Lactated Ringer's 500 ML IV ONE (08:09)
[2017-12-14 08:25] VITALS: BMI 37.5
[2017-12-14] MEDS ORDERED: Propofol 10 mg/ml Inj (20 ML) ONE (09:32)
[2017-12-14] MEDS ORDERED: Midazolam 2 MG/2 ML VIAL ONE (09:32)
[2017-12-14 10:22] VITALS: BP 145/70; PULSE 78; RESP 20; TEMP 97; O2SAT 97
== END 2017-12-14 10:42 | disposition home or self-care (01) ==
LOC: H.ENDO 07:31
PROVIDERS: ATTEND Internal Medicine Gastroenterology
DX: Z12.11 Encounter for screening for malignant neoplasm of colon (principal); E11.9 Type 2 diabetes mellitus without complications; E78.5 Hyperlipidemia, unspecified; E03.9 Hypothyroidism, unspecified; I10 Essential (primary) hypertension; D12.5 Benign neoplasm of sigmoid colon; K64.8 Other hemorrhoids
CPT/HCPCS: 45380; 82948; 88305; J2001; J2250; J2704; J7120

== ENCOUNTER 2018-07-29 21:35 | Observation (INO) | payer MEDICARE, BC ==
[2018-07-29 21:36] VITALS: BMI 37.5
--- NOTE | 2018-07-29 23:25 | ED PDOC ---
HPI: Chest Pain Time Seen by Provider: 07/29/18 22:00 Chief Complaint (Nursing): Chest Pain Chief Complaint (Provider): Chest Pain History Per: Patient, Family (Daughter, at bedside, translated for patient) History/Exam Limitations: no limitations Onset/Duration Of Symptoms: Days Additional Complaint(s): 67 y/o female with history of diabetes, hypertension, and high cholesterol presents with acute on chronic left sided headache with radiation down to left neck and chest. Patient has had symptoms for years and was here for it in 2017 but symptoms got worse over the last few days prompting ED visit. Denies shortness of breath, fever, cough, vomiting. Past Medical History Reviewed: Historical Data, Nursing Documentation, Vital Signs Vital Signs: Last Vital Signs Temp 97.7 F 07/29/18 21:43 Pulse 80 07/29/18 22:10 Resp 20 07/29/18 21:43 BP 177/94 H 07/29/18 22:10 Pulse Ox 95 07/29/18 21:43 - Medical History PMH: Anemia, Arthritis, Diabetes, HTN, Hypercholesterolemia, Hypothyroidism Denies: Chronic Kidney Disease - Surgical History Surgical History: Back Surgery - Family History Family History: States: Unknown Family Hx - Social History Current smoker - smoking cessation education provided: No Alcohol: None Drugs: Denies - Home Medications Home Medications: Ambulatory Orders Medication Instructions Recorded Atenolol 100 mg PO DAILY 04/09/17 Atorvastatin [Lipitor] 20 mg PO DAILY 04/09/17 Glipizide [Glipizide Xl] 5 mg PO DAILY 04/09/17 Levothyroxine [Synthroid] 0.137 mcg PO DAILY 04/09/17 MetFORMIN [glucoPHAGE] 1,000 mg PO BID 04/09/17 Omeprazole 20 mg PO DAILY 04/09/17 Ramipril [Altace] 10 mg PO DAILY 04/09/17 amLODIPine [Norvasc] 10 mg PO DAILY 04/09/17 hydroCHLOROthiazide [Hydrodiuril] 25 mg PO DAILY 04/09/17 Cyclobenzaprine HCl 10 mg PO HS #14 tablet 04/11/17 Famotidine [Heartburn Prevention] 20 mg PO BID #28 tablet 04/11/17 Naproxen [Naprosyn] 500 mg PO BID #28 tablet 04/11/17 cloNIDine [Catapres] 0.1 mg PO DAILY 12/14/17 Tramadol HCl [Ultram] 25 mg PO BID #10 tablet 07/30/18 - Allergies Allergies/Adverse Reactions: Allergies Allergy/AdvReac Type Severity Reaction Status Date / Time No Known Allergies Allergy Verified 11/30/17 08:30 ZARI Risk Score for UA/NSTEMI - ZARI Risk Score Age > 64: YES 3 or more CAD Risk Factors: YES Known CAD (Stenosis greater than 50%): NO Aspirin use in past 7 days: NO Severe Angina: NO EKG ST changes greater than 0.5mm: NO Positive Cardiac Marker: NO ZARI Score: 2 Risk %: 8% Review of Systems ROS Statement: Except As Marked, All Systems Reviewed And Found Negative Constitutional: Negative for: Fever Cardiovascular: Positive for: Chest Pain Respiratory: Negative for: Cough, Shortness of Breath Gastrointestinal: Negative for: Vomiting Musculoskeletal: Positive for: Neck Pain Neurological: Positive for: Headache Physical Exam - Reviewed Nursing Documentation Reviewed: Yes Vital Signs Reviewed: Yes - Physical Exam Appears: Positive for: Non-toxic, No Acute Distress (obese) Head Exam: Positive for: ATRAUMATIC, NORMAL INSPECTION, NORMOCEPHALIC Skin: Positive for: Normal Color, Warm, DRY Eye Exam: Positive for: EOMI, Normal appearance, PERRL ENT: Positive for: Normal ENT Inspection Neck: Positive for: Normal, Painless ROM Cardiovascular/Chest: Positive for: Regular Rate, Rhythm. Negative for: Murmur Respiratory: Positive for: Normal Breath Sounds. Negative for: Respiratory Distress Gastrointestinal/Abdominal: Positive for: Normal Exam, Soft, Other (obese abdomen). Negative for: Tenderness Back: Positive for: Normal Inspection Extremity: Positive for: Normal ROM. Negative for: Pedal Edema, Deformity Neurological/Psych: Positive for: Awake, Alert, Normal Tone. Negative for: Motor/Sensory Deficits - Laboratory Results Result Diagrams: 07/29/18 23:10 07/30/18 06:16 - ECG ECG Rhythm: Positive for: Normal QRS, Normal ST Segment (no ST elevation), Sinus Rhythm Rate: 81 O2 Sat by Pulse Oximetry: 95 (RA) Pulse Ox Interpretation: Normal Medical Decision Making Medical Decision Making: Time: 22:39 Impression: chest pain, headache, neck pain, acute on chronic - has had this pain before but given cardiac risk factors pt will need cardiac monitoring Initial Plan: * Labs with Troponin * CXR * EKG ASA given given headache will hold nitro 05 Patient will be admitted for chest pain observation for evaluation. Case discussed with Dr. Pollard. 00:15 Due to patient's complaints of headache, ordered head CT Scribe Attestation: Documented by Jared Hay, acting as a scribe forJessica Mirza MD Provider Scribe Attestation: All medical record entries made by the Scribe were at my direction and personally dictated by me. I have reviewed the chart and agree that the record accurately reflects my personal performance of the history, physical exam, medical decision making, and the department course for this patient. I have also personally directed, reviewed, and agree with the discharge instructions and disposition. Disposition - Clinical Impression Clinical Impression: Acute chest pain - Patient ED Disposition Is Patient to be Admitted: Yes Counseled Patient/Family Regarding: Studies Performed, Diagnosis - Disposition Disposition Time: 00:05 Condition: STABLE
[2018-07-29 23:26] LABS: BASO # 0.1 K/uL (0.0-0.2); BASO % 0.8 % (0.0-2.0); EOS # 0.2 K/uL (0.0-0.7); EOS % 2.9 % (0.0-4.0); HEMOGLOBIN 12.3 g/dL (12.0-16.0); LYMPH % 26.4 % (20.0-40.0); MEAN CELL VOLUME 77.1 fl (81.0-99.0); MEAN CORPUSCULAR HEMOGLOBIN 25.7 pg (27.0-31.0); MEAN CORPUSCULAR HGB CONC 33.3 g/dL (33.0-37.0); MEAN PLATELET VOLUME 6.4 fl (7.2-11.7); MONO # 0.7 K/uL (0.0-0.8); MONO % 9.1 % (0.0-10.0); NEUT # 4.5 K/uL (1.8-7.0); NEUT % 60.8 % (50.0-75.0); RBC 4.78 Mil/uL (3.80-5.20); RED CELL DISTRIBUTION WIDTH 15.9 % (11.5-14.5); WHITE BLOOD COUNT 7.4 K/uL (4.8-10.8)
[2018-07-29 23:29] LABS: ALB/GLOB RATIO 1.3 (1.0-2.1); ALBUMIN 4.2 g/dL (3.5-5.0); ALT/SGPT 38 U/L (9-52); AST/SGOT 24 U/L (14-36); BLOOD UREA NITROGEN 21 mg/dl (7-17); GFR NON-AFRICAN AMERICAN > 60
--- NOTE | 2018-07-30 01:21 | CP.PCM.HP ---
<Sharath Madsen - Last Filed: 07/30/18 02:23> History of Present Illness - History of Present Illness History of Present Illness: 67 y/o F with PMH of HTN, NIDDM2, Obesity, HLD, hypothyroidism, and lumbar herniated disks presented to ED complaining of left sided occipital headache that radiates to L neck, L arm and L side of chest. Pain is described as sharp and pulling, 10/10 intensity, began 17 hours ago. Pt has tried OTC PO Aleve with NO improvement. Pt reports nausea but NO vomiting. No recent trauma. Pt reports that headache and pain exacerbates upon abduction and flexion of L shoulder more than ~80 degrees and is associated with tingling and numbness over L hand and index finger. --Pt reports SOB after walking 1/2 a block, and with home tasks. --Pt denies dizziness, fever, chills, visual disturbances, cough, nasal congestion, wheezing, palpitations, rash or increasing peripheral edema. --Pt had a similar episode in 2017. Echocardiogram showed a LVEF of 50%, L atri um mildly dilated. Moderate mitral regurgitation and moderate tricuspid regurgitation. Since then, pt has had intermittent similar episodes with less intensity that usually are controlled with medications such Advil or Aleve. PMD: Dr. Garcia Immigration Case Manager: Dr. Jolanta MORSE Meds as per chart -PMH: HTN, NIDDM2, Obesity, hypothyroidism, HLD -PSHx: Lumbar hernia disc repair, Knee arthroscopy. -FHx: Father of UT at age 83, mother of UT at age 71. -SHx: Pt denies current tobacco, etoh use ED Course: --Vital signs showed elevated BP --CBC and CMP unremarkable. --Negative troponin x1 --Unremarkable EKG abd CXR. --Aspirin 81mg and Reglan 10mg administered. Present on Admission - Present on Admission Any Indicators Present on Admission: No Review of Systems - Constitutional Constitutional: absent: Chills, Fever, Night Sweats - EENT Nose/Mouth/Throat: absent: Nasal Congestion, Nasal Obstruction, Dry Mouth, Neck Mass - Cardiovascular Cardiovascular: Chest Pain, Dyspnea. absent: Palpitations - Respiratory Respiratory: Dyspnea. absent: Cough, Hemoptysis, Wheezing - Gastrointestinal Gastrointestinal: Nausea. absent: Abdominal Pain, Cramping, Diarrhea, Vomiting - Genitourinary Genitourinary: absent: Dysuria, Flank Pain, Hematuria Past Patient History - Infectious Disease Hx of Infectious Diseases: None - Past Medical History & Family History Past Medical History?: Yes - Past Social History Alcohol: None Drugs: Denies - CARDIAC Hx Hypercholesterolemia: Yes Hx Hypertension: Yes - PULMONARY Hx Respiratory Disorders: No - NEUROLOGICAL Hx Neurological Disorder: No - HEENT Hx HEENT Problems: No - RENAL Hx Chronic Kidney Disease: No - ENDOCRINE/METABOLIC Hx Hypothyroidism: Yes - HEMATOLOGICAL/ONCOLOGICAL Hx Anemia: Yes - INTEGUMENTARY Hx Dermatological Problems: No - MUSCULOSKELETAL/RHEUMATOLOGICAL Hx Arthritis: Yes - GASTROINTESTINAL Hx Gastrointestinal Disorders: No - GENITOURINARY/GYNECOLOGICAL Hx Genitourinary Disorders: No - PSYCHIATRIC Hx Psychophysiologic Disorder: No Hx Substance Use: No - SURGICAL HISTORY Hx Surgeries: Yes Other/Comment: BACK SURGERY AND KNEE SURGERY - ANESTHESIA Hx Anesthesia: Yes Hx Anesthesia Reactions: No Hx Malignant Hyperthermia: No Meds Allergies/Adverse Reactions: Allergies Allergy/AdvReac Type Severity Reaction Status Date / Time No Known Allergies Allergy Verified 11/30/17 08:30 Physical Exam - Constitutional Appears: No Acute Distress - Head Exam Head Exam: ATRAUMATIC, NORMAL INSPECTION, NORMOCEPHALIC - Eye Exam Eye Exam: EOMI, Normal appearance - ENT Exam ENT Exam: Mucous Membranes Moist, Normal Oropharynx - Neck Exam Neck exam: Positive for: Tenderness (over L upper trapezius area and L cervical paraspinal area. ). Negative for: Full Rom (painful but complete ROM. ), Meningismus - Respiratory Exam Respiratory Exam: NORMAL BREATHING PATTERN. absent: Rhonchi, Wheezes, Respiratory Distress - Cardiovascular Exam Cardiovascular Exam: REGULAR RHYTHM, +S1, +S2 - GI/Abdominal Exam GI & Abdominal Exam: Soft. absent: Distended, Guarding, Rebound, Rigid, Tenderness - Extremities Exam Extremities exam: Positive for: full ROM, pedal pulses present. Negative for: calf tenderness, pedal edema, tenderness Additional comments: Left shoulder: Reduced ROM, L arm can be elevated up to 80 degrees abduction, SILT, L arm strength 5/5. - Neurological Exam Neurological exam: Alert, Oriented x3 Results - Vital Signs Recent Vital Signs: Last Vital Signs Temp 97.7 F 07/29/18 21:43 Pulse 81 07/30/18 00:18 Resp 20 07/29/18 21:43 BP 177/94 H 03/25/19 22:10 Pulse Ox 95 07/30/18 00:18 - Labs Result Diagrams: 07/29/18 23:10 07/29/18 23:10 Labs: Laboratory Results - last 24 hr 07/29/18 07/29/18 07/29/18 22:19 23:10 23:10 WBC 7.4 RBC 4.78 Hgb 12.3 Hct 36.8 MCV 77.1 L MCH 25.7 L MCHC 33.3 RDW 15.9 H Plt Count 208 MPV 6.4 L Neut % (Auto) 60.8 Lymph % (Auto) 26.4 [place] % (Auto) 9.1 Eos % (Auto) 2.9 Baso % (Auto) 0.8 Neut # (Auto) 4.5 Lymph # (Auto) 2.0 [place] # (Auto) 0.7 Eos # (Auto) 0.2 Baso # (Auto) 0.1 Sodium 139 Potassium 3.8 Chloride 102 Carbon Dioxide 29 Anion Gap 12 BUN 21 H Creatinine 0.9 Est GFR ( Amer) > 60 Est GFR (Non-Af Amer) > 60 POC Glucose (mg/dL) 162 H Random Glucose 133 H Calcium 10.0 Total Bilirubin 0.3 AST 24 ALT 38 Alkaline Phosphatase 79 Troponin I < 0.0120 Total Protein 7.4 Albumin 4.2 Globulin 3.2 Albumin/Globulin Ratio 1.3 Assessment & Plan - Assessment and Plan (Free Text) Assessment: 67 y/o F with PMH of HTN, NIDDM2, Obesity, HLD, hypothyroidism, and lumbar herniated disks presented to ED with left sided occipital headache that radiates to L neck, L arm and L side of chest. Is admitted for evaluation and management of possible ACS. --Negative troponin x1 --Unremarkable EKG abd CXR. PLAN: >Chest pain --Pt at risk for UT due to comorbidities: HTN, HLD and DM. --Need to rule out ACS --Will repeat troponin in the morning. --Repeat EKG in the morning. (There is Hx of LBBB on EKG in 2017) --Echocardiogram ordered. --Cardiology consult, Dr Rueda. >Neck pain/Left Arm pain --Possibly muscular etiology vs radiculopathy --IV Toradol STAT ordered --PO Flexeril ordered --Considering MRI of cervical spine >Exertional dyspnea --Needs evaluation for heart failure. --Echocardiogram ordered. --Cardiology consult, Dr Rueda. >Non-insulin dependent type 2 diabetes mellitus --Chronic, controlled --Last HbA1c 7.0 on 07/22/18. --Home meds resumed >Essetial Hypertension --Chronic --BP elevated at ED possibly due to pain. --Monitor vital signs. >HLD (hyperlipidemia) --Chronic --Lipid panel on 07/22/18: CHOL 156, LDL 96, HDL 36-low, TG 125 --Home meds resumed >Hypothyroidism --Chronic --Last TSH on chart was in 2017: 4.48-wnl. --Home meds resumed >DVT Prophylaxis --SCD's --Lovenox 40mg SC daily Case discussed with Dr Atul Madsen PGY-2 - Date & Time Date: 07/30/18 Time: 02:00 <William Pollard - Last Filed: 07/30/18 09:57> Results - Vital Signs Recent Vital Signs: Last Vital Signs Temp 98.0 F 07/30/18 06:50 Pulse 74 07/30/18 09:13 Resp 18 07/30/18 06:50 BP 142/74 07/30/18 09:13 Pulse Ox 97 07/30/18 06:50 - Labs Result Diagrams: 07/29/18 23:10 07/30/18 06:16 Labs: Laboratory Results - last 24 hr 07/29/18 07/29/18 07/29/18 22:19 23:10 23:10 WBC 7.4 RBC 4.78 Hgb 12.3 Hct 36.8 MCV 77.1 L MCH 25.7 L MCHC 33.3 RDW 15.9 H Plt Count 208 MPV 6.4 L Neut % (Auto) 60.8 Lymph % (Auto) 26.4 [place] % (Auto) 9.1 Eos % (Auto) 2.9 Baso % (Auto) 0.8 Neut # (Auto) 4.5 Lymph # (Auto) 2.0 [place] # (Auto) 0.7 Eos # (Auto) 0.2 Baso # (Auto) 0.1 Sodium 139 Potassium 3.8 Chloride 102 Carbon Dioxide 29 Anion Gap 12 BUN 21 H Creatinine 0.9 Est GFR ( Amer) > 60 Est GFR (Non-Af Amer) > 60 POC Glucose (mg/dL) 162 H Random Glucose 133 H Calcium 10.0 Total Bilirubin 0.3 AST 24 ALT 38 Alkaline Phosphatase 79 Troponin I < 0.0120 NT-Pro-B Natriuret Pep Total Protein 7.4 Albumin 4.2 Globulin 3.2 Albumin/Globulin Ratio 1.3 07/30/18 07/30/18 07/30/18 06:16 07:38 08:16 WBC RBC Hgb Hct MCV MCH MCHC RDW Plt Count MPV Neut % (Auto) Lymph % (Auto) [place] % (Auto) Eos % (Auto) Baso % (Auto) Neut # (Auto) Lymph # (Auto) [place] # (Auto) Eos # (Auto) Baso # (Auto) Sodium 140 Potassium 3.6 Chloride 101 Carbon Dioxide 28 Anion Gap 15 BUN 21 H Creatinine 0.8 Est GFR ( Amer) > 60 Est GFR (Non-Af Amer) > 60 POC Glucose (mg/dL) 136 H Random Glucose 125 H Calcium 9.7 Total Bilirubin AST ALT Alkaline Phosphatase Troponin I < 0.0120 NT-Pro-B Natriuret Pep 272 Total Protein Albumin Globulin Albumin/Globulin Ratio Attending/Attestation - Attestation I have personally seen and examined this patient.: Yes I have fully participated in the care of the patient.: Yes I have reviewed all pertinent clinical information: Yes Notes (Text): 07/30/18 09:53 I saw,examined and discussed this patient with Dr Madsen. I agree with the assessment and plan outlined. This is a 67 years old female with pain to thje left side of the head radiating to the left shoulder , chest and left upper extremity. We are going to r/o ACS with Troponin and EKG series and a consult with the Immigration Case Manager.This patient will need to have further investigation of the Thoracic spine and to evaluate for a Cervical Radiculopathy. william Pollard MD
[2018-07-30 06:37] LABS: BLOOD UREA NITROGEN 21 mg/dl (7-17); CALCIUM 9.7 mg/dL (8.4-10.2); GFR NON-AFRICAN AMERICAN > 60
[2018-07-30] MEDS ORDERED: GlipiZIDE 5 mg SR Tab PO SCH (08:00)
--- NOTE | 2018-07-30 08:27 | CARD ---
APPROVED REPORT Date of service: 07/29/2018 EKG Measurement Heart [id number] <Conclusion> Normal sinus rhythm Normal ECG
[2018-07-30 08:54] LABS: B-TYPE NATRIURETIC PEPTIDE 272 pg/ml (0-900)
--- NOTE | 2018-07-30 08:55 | CT ---
Date of service: 07/30/2018 PROCEDURE: CT HEAD WITHOUT CONTRAST. HISTORY: headache COMPARISON: 04/09/2017 TECHNIQUE: Axial computed tomography images were obtained through the head/brain without intravenous contrast. Radiation dose: Total exam DLP = 846.77 mGy-cm. This CT exam was performed using one or more of the following dose reduction techniques: Automated exposure control, adjustment of the mA and/or kV according to patient size, and/or use of iterative reconstruction technique. FINDINGS: HEMORRHAGE: No intracranial hemorrhage. BRAIN: No mass effect or edema. No significant atrophy. Mild periventricular white matter lucency consistent with chronic microvascular ischemic change. VENTRICLES: Unremarkable. No hydrocephalus. CALVARIUM: Unremarkable. PARANASAL SINUSES: Minimal chronic left maxillary sinusitis MASTOID AIR CELLS: Unremarkable as visualized. No inflammatory changes. OTHER FINDINGS: None. IMPRESSION: No intracranial mass, hemorrhage or evidence of acute infarct. Mild chronic periventricular white matter ischemic change. No change from 04/09/2017. The preliminary findings for this examination were reported by [facility] at 1:28 a.m. on 07/30/2018. There is concurrence of this report with the preliminary findings.
[2018-07-30] MEDS ORDERED: ATENOLOL 100 MG TAB PO SCH (09:00)
[2018-07-30] MEDS ORDERED: Enoxaparin 40 mg Syringe SC SCH (09:00)
--- NOTE | 2018-07-30 09:08 | CP.PCM.CON ---
History of Present Illness - History of Present Illness History of Present Illness: This 67-year-old chronically overweight hypertensive diabetic female came to the emergency room after experiencing severe left-sided occipital pain along with cervical pain left shoulder pain including pain in the left infraclavicular and shoulder area. This pain has gone on for approximately 15 months virtually unabated varying mildly in degree but never completely resolved. This is not accompanied by any nausea vomiting or diplopia or speech deficit or motor deficit. There have never been seizures. There is no history of injury to the neck or head. The patient's abruptly following a brief sickness which began in April of 2017 and he in June 2017 The patient has never been a smoker and has never suffered a myocardial infarction or congestive cardiac failure. A nuclear stress test in July of last year did not show any evidence of ischemic heart disease. Her chest pain has never occurred with physical activity. The patient is chronically over weight and fairly sedentary. Physical examination shows an elderly depressed female who appears exhausted from months of unrelenting pain. Her pulse was 74 bpm and her blood pressure was 164/70 mmHg. Her jugular venous pressure was not elevated and there was no edema over lower extremities. The pedal pulses were feeble but distinctly present. There were no carotid bruits. The apex was not palpable. The first and second heart sounds were normal. There was no murmur or gallop. There were no rales. Her abdomen was soft and protuberant. There was no organomegaly. Her electrocardiogram showed sinus rhythm with borderline criteria for left ventricular hypertrophy. There were no Q waves. Review of her earlier cardiograms of April 2017 revealed presence of left bundle branch block which is not seen on yesterday's electrocardiogram. 2 sets of cardiac enzymes were negative for any evidence of myocyte injury. Rest of the labs were noted. CT scan of the head done today compared with the CT scan done of April 2017 does not show any evolving abnormality. Impression: Chronic headache (consider the possibility of depression) hypertension, diabetes, chronic exogenous obesity. The patient appears stable from cardiovascular point of view. I have discussed these findings with her primary care physician. Past Patient History - Infectious Disease Hx of Infectious Diseases: None - Past Medical History & Family History Past Medical History?: Yes - Past Social History Alcohol: None Drugs: Denies - CARDIAC Hx Hypercholesterolemia: Yes Hx Hypertension: Yes - PULMONARY Hx Respiratory Disorders: No - NEUROLOGICAL Hx Neurological Disorder: No - HEENT Hx HEENT Problems: No - RENAL Hx Chronic Kidney Disease: No - ENDOCRINE/METABOLIC Hx Hypothyroidism: Yes - HEMATOLOGICAL/ONCOLOGICAL Hx Anemia: Yes - INTEGUMENTARY Hx Dermatological Problems: No - MUSCULOSKELETAL/RHEUMATOLOGICAL Hx Arthritis: Yes - GASTROINTESTINAL Hx Gastrointestinal Disorders: No - GENITOURINARY/GYNECOLOGICAL Hx Genitourinary Disorders: No - PSYCHIATRIC Hx Psychophysiologic Disorder: No Hx Substance Use: No - SURGICAL HISTORY Hx Surgeries: Yes Other/Comment: BACK SURGERY AND KNEE SURGERY - ANESTHESIA Hx Anesthesia: Yes Hx Anesthesia Reactions: No Hx Malignant Hyperthermia: No Meds Allergies/Adverse Reactions: Allergies Allergy/AdvReac Type Severity Reaction Status Date / Time No Known Allergies Allergy Verified 11/30/17 08:30 - Medications Medications: Current Medications Acetaminophen (Tylenol 325mg Tab) 650 mg PO Q6 PRN PRN Reason: Pain, Mild (1-3) Amlodipine Besylate (Norvasc) 10 mg PO DAILY [facility] Atenolol (Atenolol) 100 mg PO DAILY [facility] Atorvastatin Calcium (Lipitor) 20 mg PO DAILY [facility] Clonidine HCl (Catapres) 0.1 mg PO DAILY [facility] Cyclobenzaprine HCl (Flexeril) 10 mg PO HS [facility] Enoxaparin Sodium (Lovenox) 40 mg SC DAILY [facility]; Protocol Famotidine (Pepcid) 20 mg PO BID [facility] Glipizide (Glucotrol Xl) 5 mg PO DAILYWM [facility] Hydrochlorothiazide (Hydrodiuril) 25 mg PO DAILY [facility] Ketorolac Tromethamine (Toradol) 30 mg IVP Q6 PRN PRN Reason: Pain, severe (8-10) Ketorolac Tromethamine (Toradol) 15 mg IVP Q6 PRN PRN Reason: Pain, moderate (4-7) Levothyroxine Sodium (Levothroid) 137 mcg PO DAILY@0630 [facility] Last Admin: 07/30/18 06:44 Dose: 137 mcg Metformin HCl (Glucophage) 1,000 mg PO BID [facility] Ramipril (Altace) 10 mg PO DAILY [facility] Results - Vital Signs Recent Vital Signs: Last Vital Signs Temp 98.0 F 07/30/18 06:50 Pulse 74 07/30/18 06:50 Resp 18 07/30/18 06:50 BP 142/74 07/30/18 06:50 Pulse Ox 97 07/30/18 06:50 - Labs Result Diagrams: 07/29/18 23:10 07/30/18 06:16 Labs: Laboratory Results - last 24 hr 07/29/18 07/29/18 07/29/18 22:19 23:10 23:10 WBC 7.4 RBC 4.78 Hgb 12.3 Hct 36.8 MCV 77.1 L MCH 25.7 L MCHC 33.3 RDW 15.9 H Plt Count 208 MPV 6.4 L Neut % (Auto) 60.8 Lymph % (Auto) 26.4 [place] % (Auto) 9.1 Eos % (Auto) 2.9 Baso % (Auto) 0.8 Neut # (Auto) 4.5 Lymph # (Auto) 2.0 [place] # (Auto) 0.7 Eos # (Auto) 0.2 Baso # (Auto) 0.1 Sodium 139 Potassium 3.8 Chloride 102 Carbon Dioxide 29 Anion Gap 12 BUN 21 H Creatinine 0.9 Est GFR ( Amer) > 60 Est GFR (Non-Af Amer) > 60 POC Glucose (mg/dL) 162 H Random Glucose 133 H Calcium 10.0 Total Bilirubin 0.3 AST 24 ALT 38 Alkaline Phosphatase 79 Troponin I < 0.0120 NT-Pro-B Natriuret Pep Total Protein 7.4 Albumin 4.2 Globulin 3.2 Albumin/Globulin Ratio 1.3 07/30/18 07/30/18 07/30/18 06:16 07:38 08:16 WBC RBC Hgb Hct MCV MCH MCHC RDW Plt Count MPV Neut % (Auto) Lymph % (Auto) [place] % (Auto) Eos % (Auto) Baso % (Auto) Neut # (Auto) Lymph # (Auto) [place] # (Auto) Eos # (Auto) Baso # (Auto) Sodium 140 Potassium 3.6 Chloride 101 Carbon Dioxide 28 Anion Gap 15 BUN 21 H Creatinine 0.8 Est GFR ( Amer) > 60 Est GFR (Non-Af Amer) > 60 POC Glucose (mg/dL) 136 H Random Glucose 125 H Calcium 9.7 Total Bilirubin AST ALT Alkaline Phosphatase Troponin I < 0.0120 NT-Pro-B Natriuret Pep 272 Total Protein Albumin Globulin Albumin/Globulin Ratio
--- NOTE | 2018-07-30 10:22 | CT ---
Date of service: 07/30/2018 PROCEDURE: CT Cervical Spine without contrast HISTORY: neck pain COMPARISON: None available. TECHNIQUE: Axial computed tomography images were obtained of the cervical spine without the use of intravenous contrast. Coronal and sagittal reformatted images were created and reviewed. Radiation dose: Total exam DLP = 348.97 mGy-cm. This CT exam was performed using one or more of the following dose reduction techniques: Automated exposure control, adjustment of the mA and/or kV according to patient size, and/or use of iterative reconstruction technique. FINDINGS: VERTEBRAE: The vertebral bodies are maintained in height. There is grade 1 retrolisthesis at C5-6. Normal alignment is maintained elsewhere. There is some straightening of the normal lordotic curvature of the cervical spine which may indicate muscular spasm. The atlantoaxial articulation and odontoid process are intact. DISCS/SPINAL CANAL/NEURAL FORAMINA: There is narrowing of the C5-6 intervertebral disc space consistent with degenerative disc disease. The remaining intervertebral disc spaces are maintained in height. There is moderate left C4-5 neural foraminal stenosis. There is moderate to severe right C5-6 neural foraminal stenosis. There is mild central spinal stenosis at C5-6. PARASPINAL SOFT TISSUES: Unremarkable. OTHER FINDINGS: None. IMPRESSION: No acute fracture. Possible muscular spasm. Degenerative disc disease and grade 1 retrolisthesis at C5-6.
--- NOTE | 2018-07-30 11:55 | CP.PCM.DIS ---
<Mali Koo - Last Filed: 07/30/18 11:53> Provider - Provider Date of Admission: 07/30/18 00:09 Attending physician: William Pollard Consults: 07/30/18 01:35 Cardiology Consult Routine Comment: Consulting Provider: Douglas Rueda V Consulting Physician: Douglas Rueda V Reason for Consult: exertional dyspnea, chest pain Time Spent in preparation of Discharge (in minutes): 30 Diagnosis - Discharge Diagnosis (1) Musculoskeletal pain Status: Acute Hospital Course - Lab Results Lab Results: Most Recent Lab Values WBC 7.4 K/uL (4.8-10.8) 07/29/18 23:10 RBC 4.78 Mil/uL (3.80-5.20) 07/29/18 23:10 Hgb 12.3 g/dL (12.0-16.0) 07/29/18 23:10 Hct 36.8 % (34.0-47.0) 07/29/18 23:10 MCV 77.1 fl (81.0-99.0) L 07/29/18 23:10 MCH 25.7 pg (27.0-31.0) L 07/29/18 23:10 MCHC 33.3 g/dL (33.0-37.0) 07/29/18 23:10 RDW 15.9 % (11.5-14.5) H 07/29/18 23:10 Plt Count 208 K/uL (130-400) 07/29/18 23:10 MPV 6.4 fl (7.2-11.7) L 07/29/18 23:10 Neut % (Auto) 60.8 % (50.0-75.0) 07/29/18 23:10 Lymph % (Auto) 26.4 % (20.0-40.0) 07/29/18 23:10 Marshall % (Auto) 9.1 % (0.0-10.0) 07/29/18 23:10 Eos % (Auto) 2.9 % (0.0-4.0) 07/29/18 23:10 Baso % (Auto) 0.8 % (0.0-2.0) 07/29/18 23:10 Neut # (Auto) 4.5 K/uL (1.8-7.0) 07/29/18 23:10 Lymph # (Auto) 2.0 K/uL (1.0-4.3) 07/29/18 23:10 Marshall # (Auto) 0.7 K/uL (0.0-0.8) 07/29/18 23:10 Eos # (Auto) 0.2 K/uL (0.0-0.7) 07/29/18 23:10 Baso # (Auto) 0.1 K/uL (0.0-0.2) 07/29/18 23:10 Sodium 140 mmol/l (132-148) 07/30/18 06:16 Potassium 3.6 MMOL/L (3.6-5.0) 07/30/18 06:16 Chloride 101 mmol/L (98-107) 07/30/18 06:16 Carbon Dioxide 28 mmol/L (22-30) 07/30/18 06:16 Anion Gap 15 (10-20) 07/30/18 06:16 BUN 21 mg/dl (7-17) H 07/30/18 06:16 Creatinine 0.8 mg/dl (0.7-1.2) 07/30/18 06:16 Est GFR ( Amer) > 60 07/30/18 06:16 Est GFR (Non-Af Amer) > 60 07/30/18 06:16 POC Glucose (mg/dL) 136 mg/dL (65-110) H 07/30/18 07:38 Random Glucose 125 mg/dL (65-105) H 07/30/18 06:16 Calcium 9.7 mg/dL (8.4-10.2) 07/30/18 06:16 Total Bilirubin 0.3 mg/dl (0.2-1.3) 07/29/18 23:10 AST 24 U/L (14-36) 07/29/18 23:10 ALT 38 U/L (9-52) 07/29/18 23:10 Alkaline Phosphatase 79 U/L (38-126) 07/29/18 23:10 Troponin I < 0.0120 ng/mL (0.00-0.120) 07/30/18 08:16 NT-Pro-B Natriuret Pep 272 pg/ml (0-900) 07/30/18 08:16 Total Protein 7.4 G/DL (6.3-8.2) 07/29/18 23:10 Albumin 4.2 g/dL (3.5-5.0) 07/29/18 23:10 Globulin 3.2 gm/dL (2.2-3.9) 07/29/18 23:10 Albumin/Globulin Ratio 1.3 (1.0-2.1) 07/29/18 23:10 - Hospital Course Hospital Course: 67 y/o F with PMH of HTN, NIDDM2, Obesity, HLD, hypothyroidism, and lumbar herniated disks presented to ED with left sided occipital headache that radiates to L neck, L arm and L side of chest. Is admitted for evaluation and management of possible ACS. --Negative troponin x1 --Unremarkable EKG abd CXR. Patient seen by Dr Rueda: The patient appears stable from cardiovascular point of view, CT scan of the head done today compared with the CT scan done of April 2017 does not show any evolving abnormality. Patient advised to follow up with Dr. Lopez within a week. Patient d/c with rx for ultram 25 mg BID10 tabs prn, and advised to continue naproxen prn - Date & Time of H&P Date of H&P: 07/30/18 Time of H&P: 11:58 Discharge Exam - Head Exam Head Exam: ATRAUMATIC, NORMAL INSPECTION, NORMOCEPHALIC - Eye Exam Eye Exam: Normal appearance Pupil Exam: NORMAL ACCOMODATION - ENT Exam ENT Exam: Mucous Membranes Moist - Respiratory Exam Respiratory Exam: NORMAL BREATHING PATTERN - Cardiovascular Exam Cardiovascular Exam: REGULAR RHYTHM, +S1, +S2 - Extremities Exam Extremities exam: normal inspection - Back Exam Back exam: NORMAL INSPECTION - Neurological Exam Neurological exam: Alert, Oriented x3 - Psychiatric Exam Psychiatric exam: Normal Affect - Skin Skin Exam: Normal Color Discharge Plan - Discharge Medications Prescriptions: Tramadol HCl [Ultram] 25 mg PO BID #10 tablet - Follow Up Plan Condition: GOOD Disposition: HOME/ ROUTINE Instructions: Muscle and Bone Pain (DC) Additional Instructions: follow up with in 1 week Psych appt as outpt Referrals: Zain Lopez MD [Family Provider] - <Winnie Qureshi - Last Filed: 07/30/18 13:41> Provider - Provider Date of Admission: 07/30/18 00:09 Attending physician: William Pollard Consults: 07/30/18 01:35 Cardiology Consult Routine Comment: Consulting Provider: Douglas Rueda V Consulting Physician: Douglas Rueda V Reason for Consult: exertional dyspnea, chest pain Hospital Course - Lab Results Lab Results: Most Recent Lab Values WBC 7.4 K/uL (4.8-10.8) 07/29/18 23:10 RBC 4.78 Mil/uL (3.80-5.20) 07/29/18 23:10 Hgb 12.3 g/dL (12.0-16.0) 07/29/18 23:10 Hct 36.8 % (34.0-47.0) 07/29/18 23:10 MCV 77.1 fl (81.0-99.0) L 07/29/18 23:10 MCH 25.7 pg (27.0-31.0) L 07/29/18 23:10 MCHC 33.3 g/dL (33.0-37.0) 07/29/18 23:10 RDW 15.9 % (11.5-14.5) H 07/29/18 23:10 Plt Count 208 K/uL (130-400) 07/29/18 23:10 MPV 6.4 fl (7.2-11.7) L 07/29/18 23:10 Neut % (Auto) 60.8 % (50.0-75.0) 07/29/18 23:10 Lymph % (Auto) 26.4 % (20.0-40.0) 07/29/18 23:10 Marshall % (Auto) 9.1 % (0.0-10.0) 07/29/18 23:10 Eos % (Auto) 2.9 % (0.0-4.0) 07/29/18 23:10 Baso % (Auto) 0.8 % (0.0-2.0) 07/29/18 23:10 Neut # (Auto) 4.5 K/uL (1.8-7.0) 07/29/18 23:10 Lymph # (Auto) 2.0 K/uL (1.0-4.3) 07/29/18 23:10 Marshall # (Auto) 0.7 K/uL (0.0-0.8) 07/29/18 23:10 Eos # (Auto) 0.2 K/uL (0.0-0.7) 07/29/18 23:10 Baso # (Auto) 0.1 K/uL (0.0-0.2) 07/29/18 23:10 Sodium 140 mmol/l (132-148) 07/30/18 06:16 Potassium 3.6 MMOL/L (3.6-5.0) 07/30/18 06:16 Chloride 101 mmol/L (98-107) 07/30/18 06:16 Carbon Dioxide 28 mmol/L (22-30) 07/30/18 06:16 Anion Gap 15 (10-20) 07/30/18 06:16 BUN 21 mg/dl (7-17) H 07/30/18 06:16 Creatinine 0.8 mg/dl (0.7-1.2) 07/30/18 06:16 Est GFR ( Amer) > 60 07/30/18 06:16 Est GFR (Non-Af Amer) > 60 07/30/18 06:16 POC Glucose (mg/dL) 136 mg/dL (65-110) H 07/30/18 07:38 Random Glucose 125 mg/dL (65-105) H 07/30/18 06:16 Calcium 9.7 mg/dL (8.4-10.2) 07/30/18 06:16 Total Bilirubin 0.3 mg/dl (0.2-1.3) 07/29/18 23:10 AST 24 U/L (14-36) 07/29/18 23:10 ALT 38 U/L (9-52) 07/29/18 23:10 Alkaline Phosphatase 79 U/L (38-126) 07/29/18 23:10 Troponin I < 0.0120 ng/mL (0.00-0.120) 07/30/18 08:16 NT-Pro-B Natriuret Pep 272 pg/ml (0-900) 07/30/18 08:16 Total Protein 7.4 G/DL (6.3-8.2) 07/29/18 23:10 Albumin 4.2 g/dL (3.5-5.0) 07/29/18 23:10 Globulin 3.2 gm/dL (2.2-3.9) 07/29/18 23:10 Albumin/Globulin Ratio 1.3 (1.0-2.1) 07/29/18 23:10 Attending/Attestation - Attestation I have personally seen and examined this patient.: Yes I have fully participated in the care of the patient.: Yes I have reviewed all pertinent clinical information, including history, physical exam and plan: Yes Notes (Text): CT of C Spine : No acute fracture. Possible muscular spasm. Degenerative disc disease and grade 1 retrolisthesis at C5-6. Diagnoses: Chest Pain, ACS ruled out CP likely Musculoskeletal Pain Depression - cont Naproxen prn -Ultram 25 mg bid prn - ff up with Dr Jose schneider - further work up as outpt - Psych appt as outpt
[2018-07-30 12:25] VITALS: RESP 20; TEMP 97.6; O2SAT 95
[2018-07-30 12:37] VITALS: BP 165/81
--- NOTE | 2018-07-30 12:49 | RAD ---
Date of service: 07/29/2018 HISTORY: Chest pain. COMPARISON: 02/23/2016. TECHNIQUE: Chest PA and lateral views FINDINGS: LUNGS: No active pulmonary disease. PLEURA: No significant pleural effusion identified. No pneumothorax apparent. CARDIOVASCULAR: No aortic atherosclerotic calcification present. Normal cardiac size. No pulmonary vascular congestion. OSSEOUS STRUCTURES: No significant abnormalities. VISUALIZED UPPER ABDOMEN: Normal. OTHER FINDINGS: None. IMPRESSION: No active disease. No significant interval change compared to the prior examination(s).
[2018-07-30 16:41] VITALS: PULSE 81
--- NOTE | 2018-07-30 20:37 | CARD ---
APPROVED REPORT Date of service: 07/30/2018 EXAM: Two-dimensional and M-mode echocardiogram with Doppler and color Doppler. Other Information Quality : GoodRhythm : NSR INDICATION Dyspnea 2D DIMENSIONS IVSd1.37 (0.7-1.1cm)LVDd4.62 (3.9-5.9cm) LVOT Diameter2.13 (1.8-2.4cm)PWd1.25 (0.7-1.1cm) IVSs1.97 (0.8-1.2cm)LVDs2.79 (2.5-4.0cm) FS (%) 39.5 %PWs1.48 (0.8-1.2cm) M-Mode DIMENSIONS Left Atrium (MM)4.44 (2.5-4.0cm)IVSd1.59 (0.7-1.1cm) Aortic Root2.88 (2.2-3.7cm)LVDd4.21 (4.0-5.6cm) Aortic Cusp Exc.1.18 (1.5-2.0cm)PWd1.65 (0.7-1.1cm) IVSs1.82 cmFS (%) 34 % LVDs2.79 (2.0-3.8cm)PWs1.85 cm Aortic Valve AoV Peak Sbjxwuxk458.2cm/sAoV VTI39.1cmAO Peak GR.18mmHg LVOT Peak Yxosckop007.4cm/sLVOT VTI25.26cmAO Mean GR.9mmHg PILI (VMAX)0.16uo3OFS (VTI)1.05cm2 Mitral Valve MV E Pznscbxe05.4cm/sMV DECEL UPIY508yzWV A Zcxdzwlf44.3cm/s MV VXJ08gtD/A ratio0.8MVA (PHT)2.56cm2 TDI Lateral E' Peak V6.27cm/sMedial E' Peak V4.32cm/sE/Lateral E'11.7 E/Medial E'17.0 LEFT VENTRICLE The left ventricle is normal size. There is mild concentric left ventricular hypertrophy. The left ventricular systolic function is normal. The estimated ejection fraction is 55-60% No regional wall motion abnormalities noted.. Transmitral Doppler flow pattern is Grade I-abnormal relaxation pattern. No left ventricle thrombus noted on this study. There is no ventricular septal defect visualized. There is no left ventricular aneurysm. There is no mass noted in the left ventricle. RIGHT VENTRICLE The right ventricle is normal size. There is normal right ventricular wall thickness. The right ventricular systolic function is normal. ATRIA The left atrium is moderately dilated. The right atrium size is normal. The interatrial septum is intact with no evidence for an atrial septal defect. AORTIC VALVE The aortic valve is normal in structure. No aortic regurgitation is present. There is no aortic valvular stenosis. There is no aortic valvular vegetation. MITRAL VALVE The mitral valve is normal in structure. There is no evidence of mitral valve prolapse. There is no mitral valve stenosis. There is no mitral valve regurgitation noted. TRICUSPID VALVE The tricuspid valve is normal in structure. There is trace tricuspid valve regurgitation noted. There is no tricuspid valve prolapse or vegetation. There is no tricuspid valve stenosis. PULMONIC VALVE The pulmonary valve is normal in structure. There is no pulmonic valvular regurgitation. There is no pulmonic valvular stenosis. GREAT VESSELS The aortic root is normal in size. The ascending aorta is normal in size. The pulmonary artery is normal. The IVC is normal in size and collapses >50% with inspiration. PERICARDIAL EFFUSION There is no pericardial effusion. There is no pleural effusion. <Conclusion> There is mild concentric left ventricular hypertrophy. The estimated ejection fraction is 55-60% Transmitral Doppler flow pattern is Grade I-abnormal relaxation pattern. The left atrium is moderately dilated. There is trace tricuspid valve regurgitation noted. RVSP is calculated at < 20 mm Hg. The IVC is normal in size and collapses >50% with inspiration.
== END 2018-07-30 17:15 | disposition home or self-care (01) ==
LOC: H.ER 21:35 → H.ERHOLD 07-30 00:09 → H.TEL 07-30 12:04
PROVIDERS: ADMIT Internal Medicine; ATTEND Internal Medicine
DX: R07.89 Other chest pain (principal); E03.9 Hypothyroidism, unspecified; E11.9 Type 2 diabetes mellitus without complications; E66.3 Overweight; E78.00 Pure hypercholesterolemia, unspecified; E78.5 Hyperlipidemia, unspecified; F32.9 Major depressive disorder, single episode, unspecified; I08.1 Rheumatic disorders of both mitral and tricuspid valves; I10 Essential (primary) hypertension; D64.9 Anemia, unspecified; E66.9 Obesity, unspecified; M19.90 Unspecified osteoarthritis, unspecified site; Z79.84 Long term (current) use of oral hypoglycemic drugs; Z79.899 Other long term (current) drug therapy; M54.2 Cervicalgia
CPT/HCPCS: 70450; 71046; 72125; 80048; 80053; 82948; 83880; 84484; 85025; 93005; 93306; 96374; 96375; 99285; G0378; J1885; J2765